=== PATIENT | male | born 1945 | race Caucasian/White ===

== ENCOUNTER 2023-04-15 08:46 | Outpatient (CLI) | payer MEDICARE, SELFPAY ==
--- NOTE | ~2023-04-15 | CT_ITS ---
CT of the Abdomen and Pelvis: Indication: Microscopic hematuria Technique: 2.5 mm axial scans were obtained through the abdomen and pelvis prior to and following in travenous administration of 130 cc of Omnipaque 350. Dose reduction technique was used on this scan b y utilizing automated exposure control and iterative reconstruction technique. The dose-length produc t (DLP) was 730.87 mGy-cm. Findings: Scans through the lung bases are unremarkable. The liver, spleen, pancreas, and adrenal glands are within normal limits. Small calcified gallstones are present. There are multiple bilateral nonobstructing renal stones, largest in the right kidney me asuring up to 7 mm in diameter, and largest in the left kidney measuring up to 11 mm in diameter. No ureteral stone or hydronephrosis identified. There are atherosclerotic calcifications of the aorta. No lymphadenopathy. No bowel obstruction or bowel wall thickening. There is no evidence to suggest acute appendicitis. Images through the pelvis were performed. At least 3 large urinary bladder stones are present, measur ing up to approximately 2.5 cm in diameter each. Prostate gland is markedly enlarged. Possible urinar y bladder wall thickening. Impression: Multiple bilateral nonobstructing renal stones, as detailed above. No ureteral stone or hydronephrosi s. At least 3 large urinary bladder stones, as detailed above. Possible urinary bladder wall thickening. Correlate for cystitis. Significantly enlarged prostate gland. Cholelithiasis. Reviewed, dictated and finalized at [facility]. Impression: Multiple bilateral nonobstructing renal stones, as detailed above. No ureteral stone or hydronephrosis. At least 3 large urinary bladder stones, as detailed above. Possible urinary bladder wall thickening. Correlate for cystitis. Significantly enlarged prostate gland. Cholelithiasis.
--- NOTE | ~2023-04-15 | XR_ITS ---
XR abdomen/kub 1V 04/15/2023 09:10 Indication: Microscopic hematuria Procedure: KUB Comparison: No prior studies for comparison. Findings: Bowel pattern is nonobstructive. Moderate colonic fecal loading. There are bilateral renal stones. There are large calcifications in the pelvis, likely bladder stones. Mild lumbar spondylosis. No acute osseous abnormality. Impression: 1: Bilateral nephrolithiasis. 2: Probable bladder stones. Reviewed, dictated and finalized at location [facility]. Impression: 1: Bilateral nephrolithiasis. 2: Probable bladder stones.
[2023-04-15 09:41] LABS: Estimated Glomerular Filt Rate > 60
== END 2023-04-15 08:47 | disposition home or self-care (01) ==
PROVIDERS: Visit Provider Urology
DX: R31.29 Other microscopic hematuria (principal); N20.0 Calculus of kidney; N21.0 Calculus in bladder; N40.0 Benign prostatic hyperplasia without lower urinary tract symptoms; K80.20 Calculus of gallbladder without cholecystitis without obstruction
CPT/HCPCS: 74018; 74178; Q9967

== ENCOUNTER 2023-05-25 05:52 | Day surgery (SDC) | payer MEDICARE, SELFPAY ==
[2023-05-13 12:57] VITALS: BMI 22.1
--- NOTE | 2023-05-13 13:26 | PC.NURSE ---
Report to the Outpatient Waiting Room, entrance under the green pavilion located off [facility], at time __6:00AM on date ___05/25/23____. Planned Procedure Time: __7:30AM . Time changes happen often and if your time is changed the preop area will call you the afternoon before. - You and your visitor will be asked to self-screen and do not enter if you have any COVID symptoms. - A mask is optional within the hospital at this time. Patients may have clear liquids (water, carbonated beverages, clear teas, apple juice) until 3 hours prior to surgery with a maximum of 20 ounces. - No food from midnight until time of surgery. Take the following medications with a SIP of water the morning of surgery: __AMLODIPINE DO NOT STOP ANY OF YOUR OTHER PRESCRIPTION MEDICATIONS PRIOR TO SURGERY ?EXCEPT THE FOLLOWING Medications to discontinue per physician ____HOLD ALL VITAMINS/SUPPLEMENTS 7 DAYS PRE-OP Date to take last dose____05/18/23 Please no make-up, nail syriac, hairspray, perfume, deodorant, or body powder the day of surgery. No jewelry (including any body piercings) or valuables the day of surgery, leave them at home. Please take a shower or bath the night before, or the morning of, surgery with an antibacterial soap. Wear comfortable, loose fitting clothing. Children are encouraged to wear pajamas. - Jewelry must be removed prior to entering the operating room. Rings and piercings that are not removed may be cut off. - The hospital will not accept responsibility for valuables. - Please leave all valuables, including medications, at home the day of surgery. If you are going home after surgery, a licensed trash truck driver must drive you home. - NO public transportation without another adult if you receive anesthesia. - We recommend that an adult stay with you for 24 hours following discharge. - We also recommend that you do not drive, make important decision, drink alcoholic beverages, or take any drugs that were not prescribed by your health care provider for at least 24 hours after your discharge time. Follow any additional instructions given to you from your surgeon. If you or anyone in your household have experienced Covid symptoms in the past week, please notify your surgeon or the nurse liaison at the phone number below for possible testing. Telephone instructions given to _PATIENT and asked if any additional questions and then verbalized understanding. Patient advised to call surgeon office or pre surgery nurse liaison [phone] if any additional questions.
--- NOTE | 2023-05-23 13:25 | WPDANESEPPF ---
Anes - Initial Pre Proc Eval Procedure: Operation Date: 05/25/23 07:30 Proposed Procedures p Cystoscopy, Holmium Laser of Bladder Stones - Sam Jenkins MD Date/Time: 05/23/23 13:25 Surgeon: Sam Jenkins MD Pre Op Diagnosis: bladder stones Patient Data Age: 77 Gender: M Height: 1.78 m Weight: 70 kg Allergies Allergy/AdvReac Type Severity Reaction Status Date / Time No Known Allergies Allergy Verified 05/25/23 06:17 Home Medications Medication Instructions Recorded Confirmed Type amlodipine 5 mg tablet 5 mg PO QAM 05/13/23 05/25/23 History cinnamon bark 500 mg capsule 500 mg PO DAILY 05/13/23 05/25/23 History (Cinnamon) cod liver oil 1 cap PO DAILY 05/13/23 05/25/23 History finasteride 5 mg tablet 5 mg PO QAM 05/13/23 05/13/23 History glimepiride 4 mg tablet 4 mg PO QAM 05/13/23 05/13/23 History losartan 50 mg tablet 50 mg PO QAM 05/13/23 05/13/23 History metformin 500 mg tablet 500 mg PO TID 05/13/23 05/13/23 History multivitamin 1 tablet PO DAILY 05/13/23 05/25/23 History oxybutynin chloride 5 mg tablet 5 mg PO BID 05/13/23 05/13/23 History pravastatin 40 mg tablet 40 mg PO HS 05/13/23 05/13/23 History tamsulosin 0.4 mg capsule 0.8 mg PO HS 05/13/23 05/13/23 History vit C 250 mg-vit E 90 mg-zinc 40 1 tablet PO DAILY 05/13/23 05/25/23 History mg-copper 1 po-noenor-ztzysn capsule (PreserVision AREDS-2) Patient hx anesthesia problems: none Family hx anesthesia problems: none Results Review: All pre-operative results and documents have been reviewed as part of the pre-operative evaluation. [facility] Past Medical History Medical History (Updated 05/23/23 @ 13:26 by Greg Cunningham MD) BPH (benign prostatic hyperplasia) CKD (chronic kidney disease) stage 3, GFR 30-59 ml/min Diabetes HTN (hypertension) Hyperlipidemia Ureterolithiasis Social History Social History Smoking packs per day: 1 Smoking cigarettes per day: 20.0 Years smoked: 7 Smoking pack-years: 7.00 Smoking status: Former smoker Tobacco type: cigarettes Smoking end date: 05/21/1968 Substance use: never Living arrangements: with family Additional living arrangements comments: Spiritual care concerns: No Anes - Eval Final PreProcedure Day of Procedure 05/23/23 13:25 Patient weight: normal Heart: regular rate and rhythm Lungs: clear to auscultation and normal air movement Airway: Mallampati scale class II Neurological: alert and oriented Last oral intake: >/= 8 hours ASA classification: III Emergent: no Anesthetic plan: proceed Anesthesia type and monitoring: general LMA Results Review: All pre-operative results and documents have been reviewed as part of the pre-operative evaluation. Informed Consent: The patient's anesthetic plan and its attendant risks and benefits were discussed with the patient/family/POA. Questions were solicited and answers provided to the satisfaction of the patient/family/POA.
[2023-05-25] VITALS (11 sets, daily range): BP systolic 107–159; BP diastolic 64–86; PULSE 66–95; RESP 12–18; TEMP 36.5–36.7; O2SAT 97–100; BMI 20.9
[2023-05-25] MEDS: LACTATED RINGERS 1,000 ML 30 ML IV CONT ×2 (06:32→09:52)
[2023-05-25 06:40] LABS: Glucose Point of Care 156 mg/dl (65-105)
[2023-05-25 07:03] LABS: Prothrombin Time 13.3 Seconds (11.1-14.7)
--- NOTE | 2023-05-25 07:17 | PM.IMHP ---
H&P: HPI History of Present Illness Date/Time: 05/25/23 07:17 Chief Complaint: multiple bladder stones Narrative: 77 yr old male found to have 3 large bladder stones. Presents for definitive management. Review of Systems Review of Systems: All systems reviewed & are unremarkable except as noted in HPI and below PMFSH Past Medical History Medical History BPH (benign prostatic hyperplasia) CKD (chronic kidney disease) stage 3, GFR 30-59 ml/min Diabetes HTN (hypertension) Hyperlipidemia Ureterolithiasis Social History Social History Smoking packs per day: 1 Smoking cigarettes per day: 20.0 Years smoked: 7 Smoking pack-years: 7.00 Smoking status: Former smoker Tobacco type: cigarettes Smoking end date: 05/21/1968 Substance use: never Living arrangements: with family Additional living arrangements comments: Spiritual care concerns: No Meds Home Medications and Allergies Home Medications Medication Instructions Recorded Confirmed Type amlodipine 5 mg tablet 5 mg PO QAM 05/13/23 05/25/23 History cinnamon bark 500 mg capsule 500 mg PO DAILY 05/13/23 05/25/23 History (Cinnamon) cod liver oil 1 cap PO DAILY 05/13/23 05/25/23 History finasteride 5 mg tablet 5 mg PO QAM 05/13/23 05/13/23 History glimepiride 4 mg tablet 4 mg PO QAM 05/13/23 05/13/23 History losartan 50 mg tablet 50 mg PO QAM 05/13/23 05/13/23 History metformin 500 mg tablet 500 mg PO TID 05/13/23 05/13/23 History multivitamin 1 tablet PO DAILY 05/13/23 05/25/23 History oxybutynin chloride 5 mg tablet 5 mg PO BID 05/13/23 05/13/23 History pravastatin 40 mg tablet 40 mg PO HS 05/13/23 05/13/23 History tamsulosin 0.4 mg capsule 0.8 mg PO HS 05/13/23 05/13/23 History vit C 250 mg-vit E 90 mg-zinc 40 1 tablet PO DAILY 05/13/23 05/25/23 History mg-copper 1 [id number] capsule (PreserVision AREDS-2) Allergies Allergy/AdvReac Type Severity Reaction Status Date / Time No Known Allergies Allergy Verified 05/25/23 06:17 Vital Signs Vital Signs - 24 hr 05/25/23 06:05 Temperature 36.5 C Pulse Rate 95 Respiratory Rate 16 Blood Pressure 159/86 H Pulse Oximetry 100 Oxygen Delivery Room Air Exam Const: General: cooperative, comfortable and no acute distress HENMT: Head: normal to inspection Eyes: General: appearance normal, both eyes and all related structures Resp: Effort & Inspection: normal respiratory effort Cardio: Rate: regular rate Rhythm: regular rhythm GI: Inspection: normal to inspection Assessment and Plan Assessment and plan (1) Bladder calculi: Code(s): N21.0 - Calculus in bladder Status: Acute Assessment and Plan: cysto, holmium laser of bladder stones.
--- NOTE | 2023-05-25 07:20 | WPDHPUPDATE1 ---
History and Physical Update Update Date/Time: 05/25/23 07:20 History and Physical has been reviewed, including an updated exam of the patient. There are NO changes in the patient's condition. Risks, benefits, and alternatives have been discussed and questions answered. Patient agrees to proceed with procedure. Proceed with cysto, holmium laser of bladder calculi
[2023-05-25] MEDS: ceFAZolin 2 GM/D5W 50 ML 2 GM/50 ML BAG IVPB (08:27)
--- NOTE | 2023-05-25 09:47 | W.PM.PROC2 ---
Procedure Note - Detailed Date of Procedure 05/25/23 Pre-op Diagnosis bladder stones-3 large stones each measuring 2-1/2 cm. Post-op Diagnosis Same Procedure Performed Cystoscopy with holmium laser 3 large bladder stones Surgeon Sam Jenkins MD Anesthesia General Description of Procedure Patient is taken to the operative suite correctly identified. Once anesthesia was obtained he was placed in dorsal lithotomy position and prepped and draped usual sterile fashion. Twenty-two Kiswahili scope inserted the bladder. He has some lateral lobe hypertrophy. Upon entering the bladder there are no tumors noted. He has 3 large stones at the floor the bladder. Each measures approximately 2.5 cm. Using the 500 micron fiber we lasered the stones into dust or small pieces. These were then retrieved. It did take extensive length of time given the volume of stone present. At the termination there was no fragments noted. He had some oozing from the bladder neck area the prostate. We used a Bugbee to fulgurate the prostate area. Given this I placed 2% viscous lidocaine the urethra and an [address] This was connected to CBI. He will be weaned off in recovery room and will be discharged home with a Vasquez catheter to have removed on or Tuesday if his urine is clear. Will plan on seeing him personally in the office in 2-3 weeks time. Drains Yes Packing No Pathology Yes Complications No immediate complications Condition Stable Disposition PACU
[2023-05-25] MEDS: LIDOCAINE HCL 2% GEL UROJET 10 ML PKG MUCOUS MEM (09:55)
[2023-05-25 10:09] LABS: Glucose Point of Care 177 mg/dl (65-105)
[2023-05-25] MEDS: fentaNYL CITRATE INJ (*CRX) 100 MCG/2 ML VIAL 25 MCG IV PUSH ×2 (11:09→11:12)
[2023-05-25] MEDS: oxyBUTYnin CHLORIDE 5 MG TABLET PO (11:17)
--- NOTE | 2023-05-25 12:09 | SUR.PHASEII ---
RN removed 5cc from balloon per Dr. Jenkins.
[2023-05-25] MEDS: oxyCODONE HCL (*CRX) 2.5 MG TAB IR PO (12:13)
== END 2023-05-25 13:08 | disposition home or self-care (01) ==
PROVIDERS: Anesthesiology; Visit Provider Urology
PROC: (CPT 52352; principal; 2023-05-25 07:30)
DX: N21.0 Calculus in bladder (principal); I12.9 Hypertensive chronic kidney disease with stage 1 through stage 4 chronic kidney disease, or unspecified chronic kidney disease; E11.22 Type 2 diabetes mellitus with diabetic chronic kidney disease; N18.30 Chronic kidney disease, stage 3 unspecified; N40.0 Benign prostatic hyperplasia without lower urinary tract symptoms; E78.5 Hyperlipidemia, unspecified; Z87.891 Personal history of nicotine dependence; Z79.84 Long term (current) use of oral hypoglycemic drugs
CPT/HCPCS: 52318; 36415; 82365; 82948; 85610; 88300; A9270; C1758; C1769; J0690; J1100; J2371; J2405; J2704; J3010; J7120